=== PATIENT | female | born 1965 ===

== ENCOUNTER 2017-11-16 11:34 | Outpatient (CLI) | payer OTHER ==
[~2017-11-16] VITALS: Ht 152.4 cm; Wt 74.8 kg
== END 2017-11-16 11:45 | disposition home or self-care (01) ==
LOC: OFIC 805 11:34
DX: J31.0 Chronic rhinitis (principal); J34.3 Hypertrophy of nasal turbinates; J02.9 Acute pharyngitis, unspecified; J32.8 Other chronic sinusitis; R22.1 Localized swelling, mass and lump, neck

== ENCOUNTER 2018-09-19 07:12 | Outpatient (CLI) | payer OTHER | END 2018-09-19 07:23 | disposition home or self-care (01) | LOC: TOM 07:12 | DX: R10.30 Lower abdominal pain, unspecified (principal); K57.30 Diverticulosis of large intestine without perforation or abscess without bleeding ==